=== PATIENT | female | born 1995 | race Caucasian/White ===

== ENCOUNTER 2018-11-04 18:19 | Inpatient (IN) ==
[~2018-11-04 18:19] MED LIST: *HR* Nalbuphine 10 MG/ML AMPUL IVP PRN; Famotidine 20 MG/2 ML VIAL IVP PRN; Metoclopramide 10 MG/2 ML VIAL IVP PRN; Naloxone 0.4 MG/ML INJ IVP PRN; Ondansetron 4 MG/2 ML VIAL IVP PRN; Penicillin G Potassium 5,000,000 UNIT in 0.9 % Sodium Chloride Mini Bag 100 ML IVPB ONE
--- NOTE | 2018-11-04 18:25 | Anesthesia Evaluation PreOp ---
Date of Encounter: 11/04/18 Time of Encounter: 18:20 - Past History Planned Operation: SHEILA Cardiac History: Denies any Significant Hx Pulmonary History: Denies Any Significant HX FURNACE FILLER History: Denies Any Significant HX Other Medical History: Other (history of chlamydia) Anesthesia History: No Prior Anesthetic Complications, Past Anesthesia (no past anesthetics, no family history of anesthesia complications.) : Yes Alcohol Use: none Drug use: none Medications and Allergies Pnv No.95/Ferrous Fum/Folic AC [ Caplet] 1 each PO DAILY 11/04/18 [History] Allergy/AdvReac Type Severity Reaction Status Date / Time No Known Allergies Allergy Verified 11/04/18 16:30 - Meds/Allergy Pre-op Review Medications Reviewed: Yes Allergies Reviewed: Yes Beta Blockers on Current Med List: No Anesthesia Results - Labs 11/04/18 18:19 Anesthesia Exam BP 112/72 P 80 R 18 T 98.7 Height: 4'11" Weight: 61kg NPO (# of Hours): 8 Pain Scale: 8 Pain Scale Used: Numeric (1 - 10) - HEENT Pupil (Motor): Pupils equal Mallampati: II Teeth: Normal Oral Opening: Greater than 3 - FURNACE FILLER LOC: Oriented FURNACE FILLER Motor: Normal RUE, Normal LUE, Normal RLE, Normal LLE, Normal Face FURNACE FILLER Sensory: Normal: RUE, LUE, RLE, LLE, Face - Cardiac Rhythm: Regular Murmur: None JVD: No Carotid Bruit: No - Pulmonary Breath Sounds: bilateral Clear Respiratory Effort: Symmetrical Anesthesia Assess/Plan ASA Score: 2 Level of consciousness: Cooperative Anesthetic Plan: Epidural Autologous Blood: No Monitoring Plan: Standard Monitors Recovery Plan: Other
[2018-11-04] MEDS: Ringers Solution, Lactated 1,000 ML IVC SCH ×2 (18:40→19:17)
[2018-11-04 18:42] LABS: Basophils % 0.2 %; Eosinophils % 0.1 %; Hematocrit 33.4 % (35.3-44.9); Hemoglobin 10.4 g/dL (11.5-15.4); Immature Granulocytes % 0.4 % (0-4); Lymphocytes # 1.1 K/mcL (0.6-4.6); Lymphocytes % 9.3 %; Mean Corpuscular HGB Conc 31.1 g/dL (31.6-35.5); Mean Corpuscular Hemoglobin 24.1 pg (28.0-33.3); Mean Corpuscular Volume 77.3 fL (83.0-100.0); Mean Platelet Volume 11.9 fL (9.4-12.4); Monocytes # 0.8 K/mcL (0.0-1.3); Monocytes % 6.7 %; Neutrophils # 9.9 K/mcL (1.6-8.9); Platelet Count 281 K/mcL (140-400); Red Blood Count 4.32 M/mcL (3.82-4.97); Red Cell Distribution Width 15.7 % (11.5-14.5); Segmented Neutrophils % 83.3 %; White Blood Count 11.8 K/mcL (4.3-11.1)
[2018-11-04] MEDS ORDERED: *HR* FentaNYL (PF) 100 MCG/2 ML VIAL ONE (18:44)
[2018-11-04] MEDS ORDERED: Ropivacaine/PF 0.2% 20 ML VIAL ONE (18:45)
--- NOTE | 2018-11-04 18:54 | OB/GYN History & Physical ---
Date of Encounter: 11/04/18 Time of Encounter: 18:19 Assessment and Plan (1) 38 weeks gestation of Current visit: Yes Status: Acute Admit for spontaneous labor at 38w4d (2) NST (non-stress test) reactive Current visit: Yes Status: Acute FHR 140 bpm, moderate variability, +15x15 accels, no decels. (3) Spontaneous onset of labor Current visit: Yes Status: Acute Admit for labor. SVE on arrival was 3 cm, made change to 5 cm and patient melissa regularly. Plan of care discussed with Dr. Cervantes OB on-call. Patient may have IV pain medication or epidural when she desires. Expectant management AROM when appropriate at least 4 hours after 1st dose of PCN Anticipate (4) GBS (group B Streptococcus carrier), +RV culture, currently Current visit: Yes Status: Acute PCN-G 5 million units x 1, then 2.5 million units q4 hrs until delivery. (5) Blood type A+ Current visit: Yes Status: Acute History of Present Illness Chief complaint: Labor HPI: Ms. Fall is a 23 year old female at 38w4d who presents for labor evaluation. She states her contractions began yesterday at 1700 and have become progressively more painful. Her has been uncomplicated aside from testing positive for Chlamydia in April. Test of cure was completed and was negative. She does report positive movement, denies bleeding and vaginal leakage. Blood type A+ GBS positive HbSAG negative T. Pall negative Rubella Immune Varicella Immune HIV negative Past Med Surg Social Fam HX - Past Medical History Medical history: no medical history Psychiatric history: no psych history - Past Surgical History Surgical History: no surgical history - Social History Smoking Status: Never smoker Smokeless Tobacco Status: Yes Alcohol use: none Drug use: none Current living situation: Home - Independent, With Family Activity Level: Independent ambulation Recent Out of Country Travel Within the Last 8 Weeks: No Exposure or Possible Exposure to Illness During Travel: No Obstetrical History - Pregnancies : 2 Para: 1 Term: 1 : 0 Ab's: 0 Livin Medications and Allergies Pnv No.95/Ferrous Fum/Folic AC [ Caplet] 1 each PO DAILY 11/04/18 [History] Allergy/AdvReac Type Severity Reaction Status Date / Time No Known Allergies Allergy Verified 11/04/18 16:30 Review of System OB All systems PM: reviewed and no additional remarkable complaints except as stated Exam - Constitutional Constitutional: well developed, well nourished, no acute distress - HEENT HEENT: PERRL - Neck Neck exam: full ROM - Lungs Respiratory exam: CTAB - Cardiovascular Cardiovascular exam: RRR, +S1, +S2 - Breasts Breast: bilateral: normal - Abdomen Abdomen: Present: bowel sounds normal, gravid, non tender - Extremities Extremities exam: full ROM, normal capillary refill, normal inspection - Vulva Vulva: bilateral: normal - Vagina Vagina: Present: normal moisture - Cervix Dilation: 5 (Per RN exam) - Uterus Uterus exam: Present: normal contour - Anus/Rectum Anus/Rectum: Present: normal perianal skin Results All other labs normal. - VTE Reasons for not Prescribing Prophylaxis: Treatment not Indicated - Low risk for VTE
[2018-11-04] MEDS ORDERED: Epidural Premix (fent/bupiv) 110 ML EP ONE (19:16)
--- NOTE | 2018-11-04 19:59 | Anesthesia Procedures ---
Date of Encounter: 11/04/18 Time of Encounter: 19:15 Procedures: Anesthesia - Epidural/Spinal Patient ID/Chart reviewed: Yes Patient examined: Yes OB Eval: : 2 OB Eval: Hx Para: 1 OB Eval: Dilated at (cm): 5 OB Eval: Contractions: Non-stressed pattern Consent Obtained: Yes Supplemental Oxygen: None/Room Air Site Prep: Aseptic Technique, Sterile prep and drape, Povidone-Iodine 1% Patient position: upright Local Anesthetic: Lidocaine 1% Amount of Local Anesthetic used: 3 Touhy Needle Gauge: 18 Touhy Needle Depth (cm): 5 Catheter Depth at Skin (cm): 13 Test Dose (1.5% Lido + Epi): Volume given (mls): 3 Test Dose Result: Negative Loading Dose: Fentanyl (mcg): 100 Loading Dose: Other: Ropivicaine 0.25% 5ml, NS 3ml, Fentanyl 100mcg Loading Dose Administered: Thru Catheter Infusion Med: 0.125% Bupivacaine w/ 2 mcg/ml Fentanyl Infusion Rate (mls/hr): [address]: Tegaderm, Tape Interspace Used: L4-L5 Loss of Resistance (JONATHAN): Yes Blood: No CSF: No Paresthesia: No Procedure: SHEILA placed 2nd pass in upright position, 1st pass heme. JONATHAN achieved with Normal saline. Catheter threaded with ease. VSS throughout. Vitals + FHT's: 191 BP 115/70 P 100 R 20 2007 BP 112/61 P 84 R 16 FHT 130s
[2018-11-04] MEDS ORDERED: Oxytocin 20 units/ LR 1000 mL 20 UNIT/1,000 ML BAG IVC ONE ×3 (20:02→23:43)
[2018-11-04] MEDS ORDERED: Lanolin 7 G OINT...G. TP PRN (20:22)
[2018-11-04] MEDS ORDERED: Benzocaine/Menthol 56 GM AEROSOL SPRAY TP PRN (20:22)
--- NOTE | 2018-11-04 20:50 | OB/GYN Procedure Note ---
Delivery - Delivery Date: 11/04/18 Provider: Ting Magaña Intrapartum events: meconium Delivery induction: none Delivery monitor: external FHT, external uterine Anesthesia: epidural Quantitated Blood Loss: 200 - Infant (s) Infant A Delivery Date: 11/04/18 Infant Delivery Time: 20:21 Presentation: vertex Position: STEPHANIE Route of delivery: Gender: Male Viability: Viable Pounds: 6 Ounces: 12 Weight Gram: 3075 kg at 1 minute: 8 at 5 mins: 9 Shoulder Dystocia: not encountered Specimens collected: cord blood Placenta: spontaneous Cord: nuchal cord, 3 umbilical vessels, delivered through nuchal - Repair Episiotomy: none Laceration Description: Periurethral, Superficial - Complications Delivery complications: meconium Delivery comments: Patient rapidly progressed to complete dilation after epidural placement. AROM was completed for a small amount of moderate meconium-stained fluid. Nursery staff was called to attend delivery. With the assistance of the breakfast attendant line, patient was coached on pushing. Called to room for delivery. Under maternal effort, spontaneous delivery of viable male over intact perineum. Nuchal cord was noted after delivery of the head, delivered through with a somersault maneuver. placed on maternal abdomen for drying and stimulation. Left periurethral laceration noted to be bleeding therefore sutured with 4-0 Vicryl. Inspection of the vagina and perineum revealed no lacerations needing sutured. Several small superficial lacerations noted but all were hemostatic. Cord clamped and cut after pulsation ceased. Spontaneous delivery of intact placenta, EBL 200 mL's. No shoulder dystocia encountered. Mother and infant in kangaroo care for 2 hour recovery. - Disposition Mom disposition: stable in LDR [place] disposition: stable in LDR
[2018-11-04] MEDS ORDERED: Penicillin G Potassium 2,500,000 UNIT in 0.9 % Sodium Chloride 100 ML IVPB SCH (22:00)
[2018-11-04] MEDS ORDERED: Rho Immune Globulin 1,500 UNIT SYRINGE IM PRN (23:43)
[2018-11-04] MEDS ORDERED: Acetaminophen 325 MG TABLET PO PRN (23:43)
[2018-11-04] MEDS ORDERED: Measles/Mumps/Rubella Vacc 0.5 ML VIAL SQ PRN (23:43)
[2018-11-04] MEDS ORDERED: Oxytocin 20 units/ LR 1000 mL 20 UNIT/1,000 ML BAG IVC SCH (23:43)
[2018-11-04] MEDS ORDERED: Ibuprofen 600 MG TABLET PO PRN (23:43)
[2018-11-05 08:45] LABS: Basophils % 0.2 %; Eosinophils % 0.1 %; Hematocrit 33.8 % (35.3-44.9); Hemoglobin 10.3 g/dL (11.5-15.4); Immature Granulocytes % 0.4 % (0-4); Lymphocytes # 1.1 K/mcL (0.6-4.6); Lymphocytes % 8.7 %; Mean Corpuscular HGB Conc 30.5 g/dL (31.6-35.5); Mean Corpuscular Hemoglobin 23.8 pg (28.0-33.3); Mean Corpuscular Volume 78.1 fL (83.0-100.0); Mean Platelet Volume 11.5 fL (9.4-12.4); Monocytes # 0.8 K/mcL (0.0-1.3); Monocytes % 5.9 %; Neutrophils # 10.8 K/mcL (1.6-8.9); Platelet Count 264 K/mcL (140-400); Red Blood Count 4.33 M/mcL (3.82-4.97); Red Cell Distribution Width 15.9 % (11.5-14.5); Segmented Neutrophils % 84.7 %; White Blood Count 12.8 K/mcL (4.3-11.1)
[2018-11-05] MEDS ORDERED: Prenatal Vit/FA 1 EACH TABLET PO SCH (09:00)
[2018-11-05 10:24] VITALS: BP 105/67
--- NOTE | 2018-11-05 17:10 | Discharge Summary ---
Date of Encounter: 11/05/18 Time of Encounter: 17:08 - Discharge Diagnosis (1) Vaginal delivery Priority: Primary Status: Acute Comments: Feeling well Tolerating regular diet Pain well-controlled with by mouth pain meds Ambulating independently Voiding independently Lochia light Passing flatus, no BM yet Vital signs stable Discharge to guest today (2) Breast feeding status of mother Priority: Secondary Status: Acute Comments: Community resources provided - Discharge Medications Prescriptions: New Acetaminophen [Tylenol] 650 mg PO Q6HR PRN tablet PRN Reason: Mild Pain Ibuprofen [Motrin] 600 mg PO Q6HR PRN #30 tablet PRN Reason: Cramping Docusate [Colace] 100 mg PO BID #30 capsule Continued Pnv No.95/Ferrous Fum/Folic AC [ Caplet] 1 each PO DAILY Home Medications: Pnv No.95/Ferrous Fum/Folic AC [ Caplet] 1 each PO DAILY 11/04/18 [History] Acetaminophen [Tylenol] 650 mg PO Q6HR PRN tablet 11/05/18 [Rx] Docusate [Colace] 100 mg PO BID #30 capsule 11/05/18 [Rx] Ibuprofen [Motrin] 600 mg PO Q6HR PRN #30 tablet 11/05/18 [Rx] Allergies/Adverse Reactions: Allergy/AdvReac Type Severity Reaction Status Date / Time No Known Allergies Allergy Verified 11/04/18 16:30 Data Procedures and tests throughout hospitalization: Laboratory Tests 11/04/18 11/05/18 18:19 07:49 WBC 11.8 H 12.8 H RBC 4.32 4.33 Hgb 10.4 L 10.3 L Hct 33.4 L 33.8 L MCV 77.3 L 78.1 L MCH 24.1 L 23.8 L MCHC 31.1 L 30.5 L RDW 15.7 H 15.9 H Plt Count 281 264 MPV 11.9 11.5 Immature Gran % 0.4 0.4 Seg Neutrophils % 83.3 84.7 Lymphocytes % 9.3 8.7 Monocytes % 6.7 5.9 Eosinophils % 0.1 0.1 Basophils % 0.2 0.2 Neutrophils # 9.9 H 10.8 H Lymphocytes # 1.1 1.1 Monocytes # 0.8 0.8 Eosinophils # 0.0 0.0 Basophils # 0.0 0.0 Labs on day of discharge: Labs from last 24 hours 11/05/18 11/04/18 07:49 18:19 WBC 12.8 H 11.8 H RBC 4.33 4.32 Hgb 10.3 L 10.4 L Hct 33.8 L 33.4 L MCV 78.1 L 77.3 L MCH 23.8 L 24.1 L MCHC 30.5 L 31.1 L RDW 15.9 H 15.7 H Plt Count 264 281 MPV 11.5 11.9 Immature Gran % 0.4 0.4 Seg Neutrophils % 84.7 83.3 Lymphocytes % 8.7 9.3 Monocytes % 5.9 6.7 Eosinophils % 0.1 0.1 Basophils % 0.2 0.2 Neutrophils # 10.8 H 9.9 H Lymphocytes # 1.1 1.1 Monocytes # 0.8 0.8 Eosinophils # 0.0 0.0 Basophils # 0.0 0.0 Date of admission: 11/04/18 18:19 Primary care physician: PCP NONE Consults: 11/04/18 23:43 Consult to Solutions Market Consultant [CONS] Routine Comment: Vaginal delivery, consult needed Discharging clinician: Moon Kemp Anticipated date of discharge: 11/05/18 - Patient Status Disposition: Home, Self-Care Condition: Good Functional capacity at discharge: independent ambulation Overall status at discharge: patient is progressing back to baseline - Discharge Instructions Follow Up With: NONE,PCP [Primary Care Provider] - Deena Lazcano [Partnered Physician] - - Diet and Activity Activity: increase activity as tolerated Diet: regular diet Hospital Course Reason for admission: active labor, IUP at term Delivery: Episiotomy: none Laceration: none complications: none Discharge diagnosis: IUP at term delivered baby: male Time Attestation: Total time spent providing and/or coordinating discharge services: Time Spent: Less than 30 minutes Exam - Constitutional Vitals: Temp Pulse Resp BP Pulse Ox 97.7 F 64 16 105/67 99 11/05/18 07:45 11/05/18 07:45 11/05/18 07:45 11/05/18 07:45 11/05/18 07:45 General appearance IM: A&O X 3, pleasant, no acute distress, thin, answers questions appropriately (human resources officer used) - Respiratory Respiratory exam: Present: CTAB - Cardiovascular Cardiovascular exam IM: Present: RRR, +S1, +S2 - GI/Abdominal GI/Abdominal exam IM: normal bowel sounds, no peritoneal signs - Rectal Rectal exam: deferred - Uterine Tone: Firm Uterus Position: 2 Fingers Below Umbilicus, Midline - Extremities Exam Extremities exam IM: Present: full ROM, normal capillary refill, normal inspection, radial pulses palpable and symmetrical - Neurological Exam Neurological exam: alert, CN II-XII intact, normal gait, oriented X3, reflexes normal, no focal deficits, strengths equal and symetr throughout - Psychiatric Additional comments: Signs and symptoms of depression discussed with patient and partner and both verbalized understanding of when to seek help.
== END 2018-11-06 08:37 | disposition home or self-care (01) | DRG 807 ==
LOC: 1NENULAB → 1NENUOBS 23:13
PROVIDERS: ADMIT Registered Nurse; ATTEND Registered Nurse

== ENCOUNTER 2019-06-07 15:10 | Inpatient (IN) ==
[2019-06-07] MEDS ORDERED: Naloxone 0.4 MG/ML INJ IVP PRN (17:16)
[2019-06-07] MEDS ORDERED: Ondansetron ODT 4 MG TAB.RAPDIS SL PRN (17:44)
[2019-06-07] MEDS ORDERED: Isovue-370 500 ML BOTTLE IVP ONE (18:01)
[2019-06-07] MEDS ORDERED: 0.9 % Sodium Chloride 500 ML IVC ONE (18:08)
[2019-06-07 18:46] LABS: Basophils # 0.1 K/mcL (0.0-0.2); Basophils % 0.3 %; Eosinophils % 0.1 %; Hematocrit 29.8 % (35.3-44.9); Immature Granulocytes % 0.8 % (0-4); Lymphocytes # 1.1 K/mcL (0.6-4.6); Lymphocytes % 7.2 %; Mean Corpuscular HGB Conc 30.2 g/dL (31.6-35.5); Mean Corpuscular Hemoglobin 23.9 pg (28.0-33.3); Mean Platelet Volume 11.1 fL (9.4-12.4); Monocytes # 1.2 K/mcL (0.0-1.3); Monocytes % 7.7 %; Neutrophils # 13.3 K/mcL (1.6-8.9); Platelet Count 436 K/mcL (140-400); Red Blood Count 3.77 M/mcL (3.82-4.97); Segmented Neutrophils % 83.9 %; White Blood Count 15.8 K/mcL (4.3-11.1)
[2019-06-07 19:02] LABS: Alanine Aminotransferase 18 Units/L (7-52); Albumin/Globulin Ratio 0.6 (1.1-2.2); Alkaline Phosphatase 153 Units/L (34-104); Aspartate Amino Transferase 28 Units/L (13-39); BUN/Creatinine Ratio 15 (6-26); Bilirubin,Total 0.4 mg/dL (0.3-1.0); Blood Urea Nitrogen 11 mg/dL (6-20); Calcium 8.7 mg/dL (8.6-10.3); Carbon Dioxide 21 mEq/L (23-29); Chloride 97 mEq/L (98-107); Globulin 5.1 g/dL (2.4-3.5); Glucose 98 mg/dL (70-105); Osmolality,Calculated 267 (280-300); Potassium 3.6 mEq/L (3.5-5.1); Sodium 129 mEq/L (136-145); Total Protein 8.1 g/dL (6.4-8.9); eGFR For African Americans > 60 (> 60); eGFR For Non-African Americans > 60 (> 60)
[2019-06-07 19:57] LABS: Iron < 10 mcg/dL (50-170); Transferrin 146 mg/dL (203-362)
[2019-06-07 20:33] LABS: Ferritin 306 ng/mL (10-120)
[2019-06-08 00:28] LABS: Hematocrit 26.5 % (35.3-44.9); Hemoglobin 8.2 g/dL (11.5-15.4); Mean Corpuscular HGB Conc 30.9 g/dL (31.6-35.5); Mean Corpuscular Hemoglobin 24.3 pg (28.0-33.3); Mean Corpuscular Volume 78.4 fL (83.0-100.0); Mean Platelet Volume 9.5 fL (9.4-12.4); Platelet Count 474 K/mcL (140-400); Red Blood Count 3.38 M/mcL (3.82-4.97); White Blood Count 12.6 K/mcL (4.3-11.1)
[2019-06-08 01:02] LABS: BUN/Creatinine Ratio 13 (6-26); Blood Urea Nitrogen 10 mg/dL (6-20); Calcium 7.8 mg/dL (8.6-10.3); Carbon Dioxide 20 mEq/L (23-29); Chloride 101 mEq/L (98-107); Glucose 105 mg/dL (70-105); Osmolality,Calculated 267 (280-300); Potassium 3.7 mEq/L (3.5-5.1); Sodium 129 mEq/L (136-145); eGFR For African Americans > 60 (> 60); eGFR For Non-African Americans > 60 (> 60)
[2019-06-08] MEDS ORDERED: 0.9 % Sodium Chloride 1,000 ML IVC SCH (01:45)
[2019-06-08] MEDS ORDERED: Tuberculin Skin Test (PPD) 5 UNIT/0.1 ML VIAL ID ONE (05:42)
[2019-06-08] MEDS ORDERED: Pyridoxine (B-6) 50 MG TABLET PO SCH (09:00)
[2019-06-08] MEDS ORDERED: PYRAZINAMIDE PO SCH (09:00)
[2019-06-08] MEDS: rifAMPin 150 MG CAPSULE PO SCH (10:14)
[2019-06-08] MEDS: PYRAZINAMIDE 500 MG PO SCH (10:14)
[2019-06-08] MEDS: Pyridoxine (B-6) 50 MG TABLET PO SCH (10:14)
[2019-06-08] MEDS: Acetaminophen 325 MG TABLET PO PRN (16:14)
[2019-06-08 18:03] LABS: Hepatitis B Surface Antibody < 3.10 mIU/mL
[2019-06-08 18:13] LABS: Hepatitis B Surface Antigen Nonreactive (Nonreactive)
[2019-06-08 18:42] LABS: HIV-1&2 Antibody & p24 Ag Nonreactive (Nonreactive)
[2019-06-09] MEDS: Acetaminophen 325 MG TABLET PO PRN ×2 (00:33→20:06)
[2019-06-09] MEDS ORDERED: Ibuprofen 800 MG TABLET PO ONE (01:34)
[2019-06-09 02:23] LABS: Hematocrit 26.5 % (35.3-44.9); Hemoglobin 8.2 g/dL (11.5-15.4); Mean Corpuscular HGB Conc 30.9 g/dL (31.6-35.5); Mean Corpuscular Hemoglobin 24.3 pg (28.0-33.3); Mean Corpuscular Volume 78.4 fL (83.0-100.0); Mean Platelet Volume 9.6 fL (9.4-12.4); Platelet Count 470 K/mcL (140-400); Red Blood Count 3.38 M/mcL (3.82-4.97); Red Cell Distribution Width 16.1 % (11.5-14.5); White Blood Count 10.5 K/mcL (4.3-11.1)
[2019-06-09 02:34] LABS: BUN/Creatinine Ratio 18 (6-26); Blood Urea Nitrogen 9 mg/dL (6-20); Calcium 8.1 mg/dL (8.6-10.3); Carbon Dioxide 23 mEq/L (23-29); Chloride 102 mEq/L (98-107); Glucose 108 mg/dL (70-105); Osmolality,Calculated 273 (280-300); Sodium 132 mEq/L (136-145); eGFR For African Americans > 60 (> 60); eGFR For Non-African Americans > 60 (> 60)
[2019-06-09] MEDS ORDERED: Thiamine (B-1) 100 MG TABLET PO SCH (09:00)
[2019-06-09] MEDS: 0.9 % Sodium Chloride 1,000 ML IVC SCH ×2 (09:38→20:04)
[2019-06-09] MEDS: PYRAZINAMIDE 500 MG PO SCH (09:39)
[2019-06-09] MEDS: Pyridoxine (B-6) 50 MG TABLET PO SCH (09:39)
[2019-06-09] MEDS: rifAMPin 150 MG CAPSULE PO SCH (09:39)
[2019-06-09 11:04] LABS: Adenovirus Not Detected (Not Detect); Bordetella Pertussis Not Detected (Not Detect); Chlamydophila pneumoniae Not Detected (Not Detect); Coronavirus 229E Not Detected (Not Detect); Coronavirus HKU1 Not Detected (Not Detect); Coronavirus NL63 Not Detected (Not Detect); Coronavirus OC43 Not Detected (Not Detect); Human Metapneumovirus Not Detected (Not Detect); Human Rhinovirus/Enterovirus Not Detected (Not Detect); Influenza A Subtype 2009 H1 Not Detected (Not Detect); Influenza B Not Detected (Not Detect); Mycoplasma pneumoniae Not Detected (Not Detect); Parainfluenza Virus 1 Not Detected (Not Detect); Parainfluenza Virus 2 Not Detected (Not Detect); Parainfluenza Virus 3 Not Detected (Not Detect); Parainfluenza Virus 4 Not Detected (Not Detect); Respiratory Syncytial Virus Not Detected (Not Detect)
[2019-06-09] MEDS ORDERED: Piperacillin/Tazobactam 3.375 GM in 0.9 % Sodium Chloride Mini Bag 100 ML IVPB SCH (16:00)
[2019-06-09 20:07] VITALS: BP 100/64
[2019-06-09] MEDS ORDERED: Aminoglycoside Consult 1 EACH MC ONE (21:24)
[2019-06-09 23:57] LABS: QuantiFERON Mitogen minus NIL 7.46 IU/mL
[2019-06-10 09:51] LABS: QuantiFERON NIL 0.26 IU/mL; QuantiFERON-TB Gold In-Tube NEGATIVE (Negative)
[2019-06-10 21:48] LABS: Enterococcus by PCR Not Detected (Not Detect); mecA Methicillin-Resist Gene Not Detected (Not Detect)
[2019-06-10 21:49] LABS: Acinetobacter baumannii by PCR Not Detected (Not Detect); Candida albicans by PCR Not Detected (Not Detect); Candida glabrata by PCR Not Detected (Not Detect); Candida krusei by PCR Not Detected (Not Detect); Candida parapsilosis by PCR Not Detected (Not Detect); Candida tropicalis by PCR Not Detected (Not Detect); Enterobacter cloacae Cmplx PCR Not Detected (Not Detect); Enterobacteriaceae by PCR Not Detected (Not Detect); Escherichia coli by PCR Not Detected (Not Detect); Klebsiella oxytoca by PCR Not Detected (Not Detect); Klebsiella pneumoniae by PCR Not Detected (Not Detect); Proteus by PCR Not Detected (Not Detect); Pseudomonas aeruginosa by PCR Not Detected (Not Detect); Serratia marcescens by PCR Not Detected (Not Detect); Staphylococcus aureus by PCR Not Detected (Not Detect); Staphylococcus by PCR DETECTED (Not Detect); Streptococcus agalactiae(B)PCR Not Detected (Not Detect); Streptococcus by PCR Not Detected (Not Detect); Streptococcus pneumoniae PCR Not Detected (Not Detect); Streptococcus pyogenes (A) PCR Not Detected (Not Detect)
[2019-06-10 22:44] LABS: A.galactomannan Ag Index 0.06
[2019-06-11 08:22] LABS: Hepatitis B Core Ab Total NEGATIVE (Negative); Hepatitis Be Antibody NEGATIVE (Negative)
[2019-06-13 08:36] LABS: Coccidioides Ab by CF <1:2 (<1:2)
== END 2019-06-09 21:25 | disposition short-term general hospital (02) | DRG 177 ==
LOC: 2ANU → SUATTDRO 16:10
PROVIDERS: ADMIT Internal Medicine; ATTEND Family Medicine